=== PATIENT | female | born 1990 | race Caucasian/White ===

== ENCOUNTER 2018-02-07 17:13 | Emergency (ER) | payer OTHER ==
[~2018-02-07] VITALS: Ht 152.4 cm; Wt 56.7 kg
[~2018-02-07 17:13] MED LIST: APAP500 PO; CHILDREN'S50 MG/1.24 PO; FLAGYL500 MG PO; HYDROCODON-ACE1 EAC7 PO; IBUPROFEN 800800 M1 PO; IBUPROFEN 800800 MG PO; MACROBID 100 M100 M1 PO; NOHOMEMEDICATIONS; NORFLEX100 MG PO; ONDANSETRON HCL4 M2 PO; PENICILLIN V P500 MG PO; ZOFRAN ODT4 MG PO; ZOFRAN4 MG PO
[2018-02-07 17:18] VITALS: BP 129/63
[2018-02-07] MEDS ORDERED: ESTROSTEP FE-21 EACH PO (17:25)
[2018-02-07] MEDS ORDERED: KEFLEX500 M1 PO (17:41)
[2018-02-07] MEDS ORDERED: PREDNISONE 20 M20 MG PO (17:41)
== END 2018-02-07 17:45 | disposition home or self-care (01) ==
LOC: M.ERS 17:13
DX: T63.391A Toxic effect of venom of other spider, accidental (unintentional), initial encounter (principal); F17.200 Nicotine dependence, unspecified, uncomplicated; Z91.010 Allergy to peanuts; Y92.89 Other specified places as the place of occurrence of the external cause

== ENCOUNTER 2018-03-03 21:58 | Emergency (ER) | payer OTHER ==
[~2018-03-03] VITALS: Ht 152.4 cm; Wt 54.4 kg
[~2018-03-03 21:58] MED LIST changes: +ESTROSTEP FE-21 EACH PO; +KEFLEX500 M1 PO; +PREDNISONE 20 M20 MG PO
[2018-03-03] MEDS ORDERED: CLEOCIN HCL150 M1 PO (22:38)
[2018-03-03 22:50] VITALS: BP 122/60
== END 2018-03-03 22:51 | disposition home or self-care (01) ==
LOC: M.ERS 21:58
DX: K08.89 Other specified disorders of teeth and supporting structures (principal); Z91.010 Allergy to peanuts; F17.210 Nicotine dependence, cigarettes, uncomplicated

== ENCOUNTER 2018-03-05 18:06 | Emergency (ER) | payer OTHER ==
[~2018-03-05] VITALS: Ht 152.4 cm; Wt 54.4 kg
[~2018-03-05 18:06] MED LIST changes: +CLEOCIN HCL150 M1 PO
[2018-03-05] MEDS ORDERED: NORCO 5-325 TA1 EACH PO (19:01)
[2018-03-05] MEDS ORDERED: PENICILLIN VK500 MG PO (19:01)
[2018-03-05 19:25] VITALS: BP 138/87
== END 2018-03-05 19:27 | disposition home or self-care (01) ==
LOC: M.ERS 18:06
DX: K04.7 Periapical abscess without sinus (principal); F17.210 Nicotine dependence, cigarettes, uncomplicated; Z91.010 Allergy to peanuts

== ENCOUNTER 2018-06-11 10:50 | Inpatient (IN) | payer OTHER ==
[~2018-06-11] VITALS: Ht 152.4 cm; Wt 56.7 kg
--- NOTE | ~2018-06-11 | H ---
[address] [address] HISTORY AND PHYSICAL Name: DAVID RODRIGES Room: [address]#: [id number] Admission: 06/11/18 Attend Phys: Onel Magana MD Discharge: 06/11/18 Date of : 89 Report #: [id number] THIS REPORT FOR: //name// Patient was here less than 24 hour please refer to the final summation note. Patient left against medical advice. By: [id number] Records Staff CARLA /JOAQUIN
[~2018-06-11 10:50] MED LIST changes: +NORCO 5-325 TA1 EACH PO; +PENICILLIN VK500 MG PO
[2018-06-11 10:56] VITALS: BP 120/65
[2018-06-11 11:16] LABS: URINE BILIRUBIN NEGATIVE (Negative); URINE BLOOD NEGATIVE (Negative); URINE CLARITY CLEAR; URINE COLOR YELLOW; URINE GLUCOSE-RANDOM NEGATIVE (Negative); URINE KETONES NEGATIVE (Negative); URINE LEUKOCYTES-REFLEX NEGATIVE (Negative); URINE NITRITE-REFLEX NEGATIVE (Negative); URINE PROTEIN TRACE (Negative); URINE SPECIFIC GRAVITY 1.015 (1.005-1.030); URINE UROBILINOGEN 0.2 E.U./dl (0.2-1.0)
[2018-06-11 11:25] LABS: ABSOLUTE BASOPHILS 0.1 thou/uL (0.0-0.2); ABSOLUTE LYMPHOCYTES 1.7 thou/uL (0.8-5.3); ABSOLUTE MONOCYTES 0.4 thou/uL (0.0-1.2); ABSOLUTE NEUTROPHILS 12.6 thou/uL (1.6-8.1); BASOPHILS 0.6 %; EOSINOPHILS 0.2 %; HEMATOCRIT 43.4 % (37.0-47.0); HEMOGLOBIN 14.6 gm/dL (12.0-15.0); LYMPHOCYTES 11.7 %; MCH 30.9 pg (26.0-34.0); MCHC 33.6 g/dL (28.0-37.0); MCV 92.1 fL (80.0-100.0); MONOCYTES 2.9 %; MPV 8.5 fl. (7.2-11.1); NUCLEATED RBCS 0 /100WBC; PLATELET COUNT* 337 thou/uL (150-400); POLYS 84.6 %; RBC 4.72 mil/uL (4.20-5.00); RDW-CV 13.2 % (10.5-14.5); WBC 14.9 thou/uL (4.0-11.0)
[2018-06-11] MEDS ORDERED: CARAFATE1 GM PO (11:29)
[2018-06-11 11:50] LABS: CALCIUM 8.6 mg/dL (8.5-10.1); CREATININE 0.6 mg/dL (0.6-1.3); POTASSIUM 3.8 mmol/L (3.5-5.1)
[2018-06-11 12:04] LABS: ALBUMIN 3.9 g/dL (3.4-5.0); TOTAL BILIRUBIN 0.6 mg/dL (<0.1-1.0); TOTAL PROTEIN 7.5 g/dL (6.4-8.2)
[2018-06-11 14:39] VITALS: BP 119/59
[2018-06-11 14:46] LABS: AMP/METHAMP Negative (Negative); BARBITURATES Negative (Negative); BENZODIAZEPINES Negative (Negative); COCAINE Negative (Negative); METHADONE Negative (Negative); OPIATES Negative (Negative); PCP Negative (Negative); THC POSITIVE (Negative)
== END 2018-06-11 14:39 | disposition left against medical advice (07) | DRG 379 ==
LOC: M.ERS 10:50 → M.TBA-ER 13:55
PROVIDERS: Physician Assistant; ADMIT Internal Medicine
DX: K92.2 Gastrointestinal hemorrhage, unspecified (principal); F17.210 Nicotine dependence, cigarettes, uncomplicated; Z53.21 Procedure and treatment not carried out due to patient leaving prior to being seen by health care provider; Z91.010 Allergy to peanuts; Z79.899 Other long term (current) drug therapy

== ENCOUNTER 2018-07-24 21:27 | Emergency (ER) | payer OTHER ==
[~2018-07-24] VITALS: Ht 152.4 cm; Wt 59.0 kg
[~2018-07-24 21:27] MED LIST changes: +CARAFATE1 GM PO
[2018-07-24 21:45] LABS: URINE BILIRUBIN NEGATIVE (Negative); URINE BLOOD NEGATIVE (Negative); URINE CLARITY CLEAR; URINE COLOR YELLOW; URINE GLUCOSE-RANDOM NEGATIVE (Negative); URINE KETONES NEGATIVE (Negative); URINE LEUKOCYTES-REFLEX NEGATIVE (Negative); URINE NITRITE-REFLEX NEGATIVE (Negative); URINE PROTEIN NEGATIVE (Negative); URINE SPECIFIC GRAVITY 1.025 (1.005-1.030); URINE UROBILINOGEN 0.2 E.U./dl (0.2-1.0)
[2018-07-24 21:54] LABS: ABSOLUTE EOSINOPHILS 0.1 thou/uL (0.0-0.7); ABSOLUTE LYMPHOCYTES 3.1 thou/uL (0.8-5.3); ABSOLUTE MONOCYTES 0.4 thou/uL (0.0-1.2); ABSOLUTE NEUTROPHILS 5.5 thou/uL (1.6-8.1); BASOPHILS 0.4 %; EOSINOPHILS 1.3 %; HEMOGLOBIN 13.2 gm/dL (12.0-15.0); LYMPHOCYTES 33.8 %; MCH 31.2 pg (26.0-34.0); MCHC 33.8 g/dL (28.0-37.0); MCV 92.4 fL (80.0-100.0); MONOCYTES 4.8 %; NUCLEATED RBCS 0 /100WBC; PLATELET COUNT* 321 thou/uL (150-400); POLYS 59.7 %; RBC 4.22 mil/uL (4.20-5.00); RDW-CV 13.2 % (10.5-14.5); WBC 9.3 thou/uL (4.0-11.0)
[2018-07-24 22:01] LABS: CALCIUM 8.7 mg/dL (8.5-10.1); CREATININE 0.6 mg/dL (0.6-1.3); POTASSIUM 3.2 mmol/L (3.5-5.1)
[2018-07-24 22:06] LABS: ALBUMIN 3.9 g/dL (3.4-5.0); TOTAL BILIRUBIN 0.5 mg/dL (<0.1-1.0); TOTAL PROTEIN 7.1 g/dL (6.4-8.2)
[2018-07-24 23:26] VITALS: BP 0/0
== END 2018-07-24 23:26 | disposition home or self-care (01) ==
LOC: M.ERS 21:27
PROVIDERS: Physician Assistant
DX: O26.891 Other specified pregnancy related conditions, first trimester (principal); Z3A.01 Less than 8 weeks gestation of pregnancy; R10.30 Lower abdominal pain, unspecified

== ENCOUNTER 2019-07-12 19:46 | Emergency (ER) | payer OTHER ==
[~2019-07-12] VITALS: Ht 152.4 cm; Wt 54.4 kg
[2019-07-12 21:49] VITALS: BP 120/62
== END 2019-07-12 21:49 | disposition home or self-care (01) ==
LOC: M.ERS 19:46
DX: S60.221A Contusion of right hand, initial encounter (principal); F17.210 Nicotine dependence, cigarettes, uncomplicated; Z91.010 Allergy to peanuts; W23.0XXA Caught, crushed, jammed, or pinched between moving objects, initial encounter; Y92.89 Other specified places as the place of occurrence of the external cause; Y93.89 Activity, other specified; Y99.8 Other external cause status

== ENCOUNTER 2019-11-15 16:12 | Emergency (ER) | payer OTHER ==
[~2019-11-15] VITALS: Ht 152.4 cm; Wt 49.9 kg
[2019-11-15] MEDS ORDERED: ZOLOFT25 MG PO (16:36)
[2019-11-15] MEDS ORDERED: CLONAZEPAM 0.50.5 M1 PO (16:36)
[2019-11-15 16:46] LABS: ABSOLUTE BASOPHILS 0.1 thou/uL (0.0-0.2); ABSOLUTE LYMPHOCYTES 1.9 thou/uL (0.8-5.3); ABSOLUTE MONOCYTES 0.5 thou/uL (0.0-1.2); ABSOLUTE NEUTROPHILS 6.3 thou/uL (1.6-8.1); BASOPHILS 0.7 %; EOSINOPHILS 0.5 %; HEMATOCRIT 36.4 % (37.0-47.0); HEMOGLOBIN 12.3 gm/dL (12.0-15.0); LYMPHOCYTES 21.7 %; MCH 31.3 pg (26.0-34.0); MCHC 33.9 g/dL (28.0-37.0); MCV 92.4 fL (80.0-100.0); MONOCYTES 5.5 %; MPV 7.7 fl. (7.2-11.1); NUCLEATED RBCS 0 /100WBC; PLATELET COUNT* 375 thou/uL (150-400); POLYS 71.6 %; RBC 3.94 mil/uL (4.20-5.00); RDW-CV 15.3 % (10.5-14.5); WBC 8.7 thou/uL (4.0-11.0)
[2019-11-15 16:47] LABS: URINE BILIRUBIN NEGATIVE (Negative); URINE BLOOD NEGATIVE (Negative); URINE CLARITY SL CLOUDY; URINE COLOR YELLOW; URINE GLUCOSE-RANDOM NEGATIVE (Negative); URINE KETONES NEGATIVE (Negative); URINE LEUKOCYTES-REFLEX NEGATIVE (Negative); URINE NITRITE-REFLEX NEGATIVE (Negative); URINE PROTEIN NEGATIVE (Negative); URINE SPECIFIC GRAVITY >= 1.030 (1.005-1.030); URINE UROBILINOGEN 0.2 E.U./dl (0.2-1.0)
[2019-11-15 16:55] LABS: AMP/METHAMP Negative (Negative); BACTERIA-REFLEX 1-9 Few /HPF (None Seen); BARBITURATES Negative (Negative); BENZODIAZEPINES Negative (Negative); CASTS None Seen /LPF (None Seen); COCAINE Negative (Negative); METHADONE Negative (Negative); MUCUS 0-3 Light strn/LPF (None Seen); OPIATES Negative (Negative); PCP Negative (Negative); SQUAMOUS 0-3 Few /LPF (0-3); THC POSITIVE (Negative); URINE RBC 0-2 Rare /HPF (0-2); URINE WBC-REFLEX 0-5 Rare /HPF (0-5)
[2019-11-15 16:56] LABS: AMORPHOUS URATES Many /LPF (None Seen)
[2019-11-15 17:00] LABS: ALBUMIN 3.9 g/dL (3.4-5.0); CALCIUM 8.1 mg/dL (8.5-10.1); CREATININE 0.6 mg/dL (0.6-1.3); POTASSIUM 4.9 mmol/L (3.5-5.1); TOTAL BILIRUBIN 0.6 mg/dL (<0.1-1.0); TOTAL PROTEIN 7.4 g/dL (6.4-8.2)
[2019-11-15 17:04] LABS: ACETAMINOPHEN < 2 ug/mL (10-30); ALCOHOL < 10 mg/dL (<10); SALICYLATE 2.8 mg/dL (2.8-20.0)
[2019-11-15 20:50] VITALS: BP 124/69
== END 2019-11-15 20:50 | disposition home or self-care (01) ==
LOC: M.ERS 16:12
PROVIDERS: Family Medicine
DX: S61.512A Laceration without foreign body of left wrist, initial encounter (principal); Z00.8 Encounter for other general examination; F41.9 Anxiety disorder, unspecified; F32.9 Major depressive disorder, single episode, unspecified; F17.210 Nicotine dependence, cigarettes, uncomplicated; Z91.010 Allergy to peanuts; Z79.899 Other long term (current) drug therapy; W26.8XXA Contact with other sharp object(s), not elsewhere classified, initial encounter; Y93.89 Activity, other specified; Y92.89 Other specified places as the place of occurrence of the external cause; Y99.8 Other external cause status

== ENCOUNTER 2020-07-31 11:38 | Emergency (ER) | payer OTHER ==
[~2020-07-31] VITALS: Ht 152.4 cm; Wt 59.0 kg
[~2020-07-31 11:38] MED LIST changes: +CLONAZEPAM 0.50.5 M1 PO; +ZOLOFT25 MG PO
[2020-07-31] MEDS ORDERED: NAPROSYN500 MG PO (12:34)
[2020-07-31 12:38] VITALS: BP 138/72
== END 2020-07-31 12:39 | disposition home or self-care (01) ==
LOC: M.ERS 11:38
DX: S63.91XA Sprain of unspecified part of right wrist and hand, initial encounter (principal); F41.9 Anxiety disorder, unspecified; F31.9 Bipolar disorder, unspecified; F17.210 Nicotine dependence, cigarettes, uncomplicated; Z79.899 Other long term (current) drug therapy; Z91.010 Allergy to peanuts; W22.8XXA Striking against or struck by other objects, initial encounter; Y93.89 Activity, other specified; Y92.89 Other specified places as the place of occurrence of the external cause; Y99.8 Other external cause status